=== PATIENT | male | born 2000 | race Caucasian/White ===

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

== ENCOUNTER 2023-10-23 04:45 | Emergency (ER) | payer BC ==
[2023-10-23] MEDS ORDERED: Sodium Chloride 0.9% 10 ML Syringe FLUSH PRN (04:48)
[2023-10-23] MEDS ORDERED: Sodium Chloride 0.9% 2.5 ML Syringe FLUSH PRN (04:48)
[2023-10-23] MEDS: Octyl 2-Cyanoacrylate 1 g/1 mL 1 APPLIC PEN TOP ONE (06:06)
[2023-10-23] MEDS: Sodium Chloride 0.9% 1,000 ML IV STA (06:12)
[2023-10-23] MEDS: Ondansetron 4 MG/2 ML SDV IVPUSH ONE (06:12)
[2023-10-23 06:20] VITALS: BP 144/78; PULSE 80
[2023-10-23] MEDS: Ondansetron 4 MG Tab PO ONE (06:28)
[2023-10-23] MEDS: Ondansetron 4 MG Tab.DIS PO ONE (06:35)
== END 2023-10-23 06:38 | disposition home or self-care (01) ==
LOC: MW.ED 04:45
DX: S06.0X0A Concussion without loss of consciousness, initial encounter (principal); S01.81XA Laceration without foreign body of other part of head, initial encounter; F10.120 Alcohol abuse with intoxication, uncomplicated; I10 Essential (primary) hypertension; Z75.8 Other problems related to medical facilities and other health care; Z88.0 Allergy status to penicillin; Z79.899 Other long term (current) drug therapy; W01.198A Fall on same level from slipping, tripping and stumbling with subsequent striking against other object, initial encounter; Y93.02 Activity, running; Y90.9 Presence of alcohol in blood, level not specified
CPT/HCPCS: 12011; 70450; 72125; 99284; A9270